=== PATIENT | male | born 1945 | race Caucasian/White ===

== ENCOUNTER 2016-11-27 10:27 | Day surgery (SDC) | payer OTHER ==
[~2016-11-27] VITALS: Ht 175.3 cm; Wt 115.2 kg
[~2016-11-27 10:27] MED LIST: ALEVE220 MG PO; AMBIEN; ASPIR 8181 M1 PO; HYDROCODON-ACE1 EAC7 PO; LISINOPRIL; LISINOPRIL10 MG PO; OXYCODONE5 MG PO; TRAZODONE; VITAMIN B-122000 MC1 PO; VITAMIN D31000 UNIT PO; ZOLPIDEM TART12.5 MG PO
== END 2016-11-27 11:38 | disposition home or self-care (01) ==
LOC: PAIN 10:27 → SDC 11:00 → PAIN 11:00
DX: M47.26 Other spondylosis with radiculopathy, lumbar region (principal); M96.1 Postlaminectomy syndrome, not elsewhere classified; M46.1 Sacroiliitis, not elsewhere classified; I10 Essential (primary) hypertension; Z79.82 Long term (current) use of aspirin; Z79.891 Long term (current) use of opiate analgesic
CPT/HCPCS: 93005; J1030; J2250; J3010; S0020

== ENCOUNTER 2016-12-04 13:26 | Day surgery (SDC) | payer OTHER ==
[~2016-12-04] VITALS: Ht 179.1 cm; Wt 111.1 kg
[~2016-12-04 13:26] MED LIST changes: -VITAMIN B-122000 MC1 PO; +VITAMIN B-12500 MC3 PO; +VITAMIN D32000 UNI1 PO
== END 2016-12-04 15:20 | disposition home or self-care (01) ==
LOC: PAIN 13:26 → SDC 14:00 → PAIN 14:00
DX: M47.26 Other spondylosis with radiculopathy, lumbar region (principal); M54.5 Low back pain; G89.29 Other chronic pain; M46.1 Sacroiliitis, not elsewhere classified; M96.1 Postlaminectomy syndrome, not elsewhere classified; I10 Essential (primary) hypertension; Z79.82 Long term (current) use of aspirin
CPT/HCPCS: J1030; J2250; J3010; S0020